=== PATIENT | female | born 1985 | race Caucasian/White ===

== ENCOUNTER 2021-02-09 04:04 | Outpatient (CLI) | payer MEDICAID, SELFPAY ==
[2021-02-10 14:53] LABS: AFP 47.9 ng/mL; Calculated age at EDD 36 years; Cigarette smoking status non-Smoker; GA used in risk estimate Scan estimate; IVF Pregnancy No; Initial or repeat testing Initial testing; Insulin dependent diabetes No; Maternal Weight 151 lbs; Number of Fetuses 1; Prev Pregnancy w/NTD No; RECOMMENDED FOLLOW UP None.; Results Summary Normal risk
== END 2021-02-09 04:05 | disposition home or self-care (01) ==
LOC: LBO 04:04
PROVIDERS: Visit Provider Advanced Practice Midwife
DX: Z34.92 Encounter for supervision of normal pregnancy, unspecified, second trimester (principal)
CPT/HCPCS: 36415; 86850; 86900; 86901; 82105

== ENCOUNTER 2021-04-15 03:06 | Outpatient (CLI) | payer MEDICAID, SELFPAY ==
[2021-04-15 10:22] LABS: HCT 35.9 % (36.0-46.0); HGB 11.7 g/dL (11.2-15.7); MCH 31.1 pg (27.0-33.0); MCHC 32.6 % (32.0-36.0); MCV 95.5 fL (80-95); MPV 9.5 fL (8.0-11.0); Platelet Count 174 10^3/uL (130-400); RBC 3.76 10^6/uL (3.93-5.22); RDW 13.5 % (11.7-14.6); RDW-SD 47.4 fL; WBC 7.75 10^3/uL (4.4-10.8)
[2021-04-15 10:30] LABS: Glucose,1 Hr (Glucola) 95 mg/dL (80-140)
== END 2021-04-15 03:07 | disposition home or self-care (01) ==
LOC: LBO 03:06
PROVIDERS: Advanced Practice Midwife; Visit Provider Advanced Practice Midwife
DX: Z34.92 Encounter for supervision of normal pregnancy, unspecified, second trimester (principal)
CPT/HCPCS: 36415; 82950; 85027

== ENCOUNTER 2021-06-18 18:36 | Outpatient (REF) | payer MEDICAID, SELFPAY ==
[2021-06-18 19:47] LABS: *AMPHETAMINES SCREEN URINE Negative (Negative); *BARBITURATES SCREEN URINE Negative (Negative); *BENZODIAZEPINES SCREEN URINE Negative (Negative); Cannabinoids THC Negative (Negative); Cocaine Screen,Urine Negative (Negative); METHADONE URINE SCREEN Negative (Negative); OPIATES URINE SCREEN Negative (Negative)
[2021-06-18 19:50] LABS: Tricyclic Antidepressants Negative (Negative)
[2021-06-27 09:45] LABS: Buprenorphine Negative ng/mL (Cutoff: 5.0); Norbuprenorphine Negative ng/mL (Cutoff: 2.5)
== END 2021-06-18 18:37 | disposition home or self-care (01) ==
LOC: LBN 18:36
PROVIDERS: Visit Provider Advanced Practice Midwife
DX: Z34.93 Encounter for supervision of normal pregnancy, unspecified, third trimester (principal)
CPT/HCPCS: 80307; 87081

== ENCOUNTER 2021-07-09 02:04 | Outpatient (CLI) | payer MEDICAID, SELFPAY | END 2021-07-09 02:05 | disposition home or self-care (01) | LOC: LBO 02:04 | PROVIDERS: Visit Provider Advanced Practice Midwife ==

== ENCOUNTER 2021-07-14 02:07 | Inpatient (IN) | payer MEDICAID, SELFPAY ==
[2021-07-14] VITALS (65 sets, daily range): BP systolic 95–183; BP diastolic 51–88; PULSE 65–169; RESP 18–97; TEMP 36.3–37.6; O2SAT 88–100; BMI 30.1
--- NOTE | 2021-07-14 02:44 | ANES.PREOP_ITS ---
General Info Date of Service Date Performed: 07/14/21 Height: 5 ft Weight: 70 kg Body Mass Index (BMI): 30.1 Meds Allergies and Home Medications Allergies Allergy/AdvReac Type Severity Reaction Status Date / Time No Known Allergies Allergy Verified 07/02/21 11:36 Home Medication Medication Instructions Recorded vits no.126-ferrous fum 1 tab PO DAILY tab 02/09/21 28 mg iron-folic acid 800 mcg tablet (Classic ) docusate sodium 100 mg capsule 100 mg PO DAILY PRN 03/18/21 famotidine 10 mg tablet (Pepcid AC) 10 mg PO DAILY 06/18/21 magnesium 250 mg tablet 250 mg PO DAILY 07/02/21 Current Visit Medications: Current Medications Generic Name Dose Route Start Last Admin Trade Name Freq PRN Reason Stop Dose Admin Sodium Chloride 500 mls @ 0 mls/hr 07/14/21 02:07 Saline 500ml Bag IV PRN PRN As Directed IV Miscellaneous Supplies 1 each 07/14/21 02:15 Iv Access IV DIRECTED WILLIAM Sodium Chloride 0 ml 07/14/21 02:07 Normal Saline Flush 10 Ml Syr IVP PRN PRN PFSH Active Problems Active Problems: Problem Status Onset Code History of tachycardia Z87.898 Suprapubic discomfort R10.2 Adjustment disorder with mixed emotional features F43.29 Difficulty weaning from breast R63.39 Rage attacks F69 Family historic risk of congenital abnormality O35.8XX0 Abnormal Pap smear of cervix R87.619 Z34.90 Advanced maternal age during , antepartum Medical History Medical History Former tobacco use Premenstrual dysphoria Tobacco Smoking/Tobacco Use Status: Former Tobacco Use Prental History History 2 Para 1 Hx # Term Pregnancies 1 Multiple births 0 Hx # Pregnancies 0 Ectopic pregnancies 0 AB induced 0 Hx Number of Living Children 1 AB spontaneous 0 Past Pregnancies Del. Date GA/Weeks # Outcome Route Wgt Sex Labor Lgth Anesthes ia Location Prov Complic 09/17/19 38 No Successful vaginal 3883.885 g Female PROM, lab or started at 12 hrs. ROM x25 hrs, had 10 minute 2nd stage. [facility] Delivery Date: 09/17/19 Last Updated by: Nely Carlson Spont labor. TTN, in NICU x15 minutes for CPAP which resolved quickly. Vital Signs and Lab Results Vital Signs Most Recent Vital Signs in EMR: Most Recent Vital Signs Pulse BP 75 106/51 L 07/14/21 02:34 07/14/21 02:34 Lab Results Result Diagrams: 07/14/21 02:45 Blood Type / Crossmatch: No Data to Display Complete Blood Count: No Data to Display Complete Metabolic Panel: No Data to Display Liver Function Panel: No Data to Display Coagulation Panel: No Data to Display Cardiac Panel: No Data to Display Arterial Blood Gas: No Data to Display Venous Blood Gas: No Data to Display Pancreas Panel: No Data to Display Thyroid Panel: No Data to Display Infectious Disease: No Data to Display Blood Cultures: No Data to Display Toxicology Panel: Urine Amphetamines Screen Negative (Negative) 06/18/21 13:35 06/18/21 Urine Benzodiazepines Screen Negative (Negative) 06/18/21 13:35 06/18/21 Urine Barbiturates Screen Negative (Negative) 06/18/21 13:35 06/18/21 Urine Cocaine Screen Negative (Negative) 06/18/21 13:35 06/18/21 Urine Methadone Screen Negative (Negative) 06/18/21 13:35 06/18/21 Urine Opiates Screen Negative (Negative) 06/18/21 13:35 06/18/21 Ur Tricyclic Antidepressants Screen Negative (Negative) 06/18/21 13:35 06/18/21 Ur Tetrahydrocannabinol (THC) Scrn Negative (Negative) 06/18/21 13:35 06/18/21 Panel: No Data to Display Anesthesia Assessment and Plan Anesthesia History Personal History: No History of Anesthesia Complications Family History: No Family History of Anesthesia Complications Exercise Tolerance Exercise Tolerance: Metabolic Equivalents>4 Cardiac & Pulmonary Exam Cardiac Exam: Normal S1/S2 Heart Sounds Pulmonary Exam: Clear Bilateral Breath Sounds Implantable Cardiac Device Does patient have a Pacemaker or an ICD?: No Airway Exam Known Difficult Airway: No Mallampati Class: 1 Mouth Opening: Normal (> 3cm) Thyromental Distance: Greater than 3 cm Neck Range of Motion: Full ROM Neck Circumference: Normal Teeth Condition: Normal Dentition ASA Classification ASA Score: ASA 2 Emergency Case?: No NPO Status NPO Status: Full Stomach Status Status: Other (preg) Anesthesia Plan Resuscitation Status: Full Code Anesthesia Technique: Spinal Anesthesia Airway Planned: Natural Airway Pain Management: Epidural Monitors Used: Standard Monitors Preoperative Comments:: 36 yo female requesting epidural. Sig PMHx: denies major, former smoker, GERD (famotidine). Previous epidural GAMAL 5.5, cath 10 cm at skin, loaded with 13 mL off pump.
[2021-07-14 02:53] LABS: HCT 36.1 % (36.0-46.0); MCH 30.9 pg (27.0-33.0); MCHC 33.2 % (32.0-36.0); MPV 10.7 fL (8.0-11.0); Platelet Count 164 10^3/uL (130-400); RBC 3.88 10^6/uL (3.93-5.22); RDW 13.7 % (11.7-14.6); RDW-SD 46.5 fL
[2021-07-14 03:16] LABS: Source Nasal/Nares
[2021-07-14] MEDS: Lactated Ringers 500 ML IV (03:18)
--- NOTE | 2021-07-14 03:19 | ANES.NEUR_ITS ---
Intrathecal Analgesia Date Performed: 07/14/21 Procedure Time: 03:10 Requesting Provider: Mary Ervin Procedure Location: Obstetrics Reason Performed: Labor Intrathecal Analgesia Standard Monitors Applied: Blood Pressure and SpO2 Patient Position: Sitting Timeout Performed: Yes Sedation Given (Indicate Dose Given): No Sedation given Patient Mental Status: Awake Sterility: Hand Hygiene, Surgical Cap, Surgical Mask, Sterile Gloves, Sterile Drape/Sheet and Chlorhexidine Placement Site: L3-L4 Interspace Spinal Needle Type: Sprotte 25 Gauge Needle Length: 3.5 Inch Spinal Procedure: Site Prepped, Sterile Drape Placed, 1% Lidocaine to skin and subcutaneous tissue with 25G needle, Introducer Needle Used, Spinal Needle Placed, Positive Heme Noted, Positive CSF Flow and Medication Injected Paresthesia: None Spinal Local Anesthetic (Indicate Dose Given): Bupivacaine 0.25% PF (ml) Dose:: 2.2 mL Additives (Indicate Dose Given): Fentanyl PF Dose:: 20 mcg Ultrasound: Not Used Number of Attempts (See previous attempts in note section): 1 Procedure Tolerated: No Complications Procedure Outcome: Successful Procedure Comment: Was called for a requested epidural placement. After a brief discussion with the miter sawyer, pt is progressing rapidly and is extremely uncomfortable, and unlikely able to tolerate epidural placement. Pt was consented for intrathecal analgesia. Performed By: Leonel Drake
--- NOTE | 2021-07-14 03:23 | W.PM.OBHPL1 ---
Date of service: 07/14/21 Time of Service: 03:00 Assessment and Plan Assessment and plan (1) Spontaneous onset of labor: Status: Acute Assessment and plan: Admit to Center. prepared for epidural analgesia. Anesthesia arrived and administered intrathecal analgesia. Covid- 19 test. Anticipate . OB-HPI Labor/Delivery History of Present Illness Reason for Visit: labor Chief Complaint: Uterine Contractions. JAIME Calculator Estimated Delivery Date Method Current WG Current Estimate 07/14/21 Ultrasound #1 40w 0d Other Estimates 07/06/21 LMP (Certain) 41w 1d Comments: Olga called with strong regular contractions, She arrived in active labor and requesting an epidural. History of Present Expected Delivery Route/Plan - CNM FOB - [place] (2nd baby together, has a 16 year old) BB yes to circ Will want regional anesthesia if there is time, plans to labor at home for awhile GBS neg Specific Issues/Plan 1. Advanced maternal age - first trimester serum genetic testing normal at [facility], CF neg in previous , offered [facility] [place] Level 2 US, referral sent. 1a. Maternal AFP only neg; Level II US is normal, placenta, posterior and left lateral 2. Family history chromosome 13 anomaly - brother's child at 3 months-genetic testing scheduled. 2a. Declines amniocentesis but agreed to Fragile X testing with Genetics, done @ [facility] [place], nml male fetus 3. Olga and her have not received Covid vaccine. Had a COVID test in March=negative 4. Early Glucose - 138, 3-hr not recommended at [facility]. Glucola done @ 27 wks=95 5. Light spotting 21 weeks - precautions reviewed. 6. Pruritic rash on wrists and face- to try triamcinolone cream. relief methods discussed. 7. Tandem nursing 18 month old - attempting to wean and having difficulty, referral to Tory ADAMS to discuss 8. History of mood disorder/rage reaction - referred to her PCP for Mental health services and marriage counseling [facility] All Active Problems (Updated 07/14/21 @ 03:28 by Mary Ervin CNM) Spontaneous onset of labor (Acute) History of tachycardia (Acute) Suprapubic discomfort (Acute) Adjustment disorder with mixed emotional features (Acute) Difficulty weaning from breast (Acute) Rage attacks (Acute) Family historic risk of congenital abnormality (Acute) Patient's Brother's baby had trisomy 13 that led to @ 3 months Abnormal Pap smear of cervix (Acute) Pap 02/2019 ASCUS; HPV Negative Reported pap 2006 was SUGEY 3, resolved, no treatment (Acute) Advanced maternal age during , antepartum (Acute) Medical History (Updated 07/14/21 @ 03:28 by Mary Ervin CNM) Former tobacco use Premenstrual dysphoria Family History Paternal Grandmother Parkinson disease Niece Family historic risk of congenital abnormality trisomy 13, after Social History (Updated 02/09/21 @ 10:29 by Mary Ervin CNM) Smoking/Tobacco Use Status: Former Tobacco Use Tobacco: How many years used: 20 Smoking risk assessment performed?: Yes Alcohol Intake: never Substance use type: does not use History History 2 Para 1 Hx # Term Pregnancies 1 Multiple births 0 Hx # Pregnancies 0 Ectopic pregnancies 0 AB induced 0 Hx Number of Living Children 1 AB spontaneous 0 Past Pregnancies Del. Date GA/Weeks # Outcome Route Wgt Sex Labor Lgth Anesthesia Location Prov Complic 09/17/19 38 No Successful vaginal 8 lb 9 oz Female PROM, labor started at 12 hrs. ROM x25 hrs, had 10 minute 2nd stage. [facility] Delivery Date: 09/17/19 Last Updated by: Nely Carlson Spont labor. TTN, in NICU x15 minutes for CPAP which resolved quickly. Meds Allergies and Home Medications Allergies Allergy/AdvReac Type Severity Reaction Status Date / Time No Known Allergies Allergy Verified 07/02/21 11:36 Home Medications Medication Instructions Recorded Confirmed Type vits no.126-ferrous fum 1 tab PO DAILY tab 02/09/21 06/26/21 History 28 mg iron-folic acid 800 mcg tablet (Classic ) docusate sodium 100 mg capsule 100 mg PO DAILY PRN 03/18/21 06/26/21 History famotidine 10 mg tablet (Pepcid AC) 10 mg PO DAILY 06/18/21 06/26/21 History magnesium 250 mg tablet 250 mg PO DAILY 07/02/21 History Exam Physical Exam Vital signs: Pulse BP Pulse Ox 78 101/64 99 07/14/21 03:19 07/14/21 03:10 04/12/22 03:18 Detailed Labor and Delivery Exam Dilation: 6 Effacement (%): 80 station: -2 Position: VALERIO Cervix position: posterior Consistency: soft Tai Score: Cervical Points Exam 0 1 2 3 Dilation Closed 1-2cm 3-4 cm 5-6cm Effacement 0-30% 40-50% 60-70% 80% Consistency Firm Medium Soft Station -3 -2 -1,0 +1,+2 Position Posterior Mid Anterior Amniotic Membrane Status: Intact Rupture Method: Spontaneous Amniotic Fluid: Clear Pooling: Negative Monitor Mode: External Contraction Frequency(min): evry 3 min Contraction Duration(sec): 60 Contraction Intensity: Moderate/Strong Fetus A Heart Rate Baseline: 120 Monitor Accelerations: 15 X 15 Monitor Decelerations: None Variability: Moderate (6-25 BPM) Presentation: Vertex Est. Weight: 8 lb Respiratory Exam Respiratory Exam: Normal Cardiovascular Exam Cardiovascular Exam: Normal Abdominal Exam Abdominal Exam: Normal Rectal Exam Rectal Exam: Normal Exam Exam: Normal Extremities Exam Extremities Exam: Normal Skin Exam Skin Exam: Normal Psychiatric Exam Psychiatric Exam: Normal (coping fairly well with labor and using nitrous oxide for pain., ) Results Abnormal Lab Findings: Abnormal Labs 07/14/21 02:45 RBC 3.88 L Risk Assessment Risk for Shoulder Dystocia Historical/Initial OB: NEGATIVE FOR: Pelvic Abnormality, Pre- BMI>30, Previous Shoulder Dystocia or Previous Macrosomia Delivery Plan @ 36wks: spont labor, Risk for Pre-Eclampsia Date Initiated/Initials: not indicated Yes, if one or more: NEGATIVE FOR: Hx Pre-E/Gest HTN, Chronic HTN, Multiple Gestation, Pre-gestational DM, Renal Disease, Systemic Lupus or APA Syndrome Yes, if 2 or more: POSITIVE FOR: Age>= 35 yrs; NEGATIVE FOR: Nulliparity, >10yr btwn pregnancies, BMI>30, ethinicty, Mother/Sister w/ Pre-E or Previous IUGR Risk for Post- Hemorrhage Initial: NEGATIVE FOR: Multiple Gestation, Previous PPH, Known Clotting Deficiency, Grand Multiparity or Anticoagulation Risks Reviewed Risks Reviewed Upon Admission: Yes
[2021-07-14] MEDS: Calcium Carbonate *TUMS* 500 MG CHEW PO (03:45)
[2021-07-14] MEDS: Oxytocin/Normal Saline 30 UNIT/500 ML BAG 95 UNITS IV (04:29)
--- NOTE | 2021-07-14 05:03 | W.OBDELIVERY ---
Date of service: 07/14/21 Time of Service: 05:03 OB Labor/ Delivery Information Baby A Delivery Delivery Method: Spontaneaous Presentation: Vertex Cephalic Position: Vertex Vertex Position: Left Occipital Anterior Amniotic Fluid: Clear Estimated Blood Loss: 250 Delivery Outcome: Liveborn Transferred: Remains with Mother Note: Olga was 7 cms and 0 station after spontaneous rupture of membranes for a large amount of clear fluid. Intrathecal analgesia given by Leonel MATA with excellent effect. Olga rested and had an urge to push and was fully dilated. FHTs 130s during first stage of labor. FHTs 130s in second stage. Second stage huddle was done. Spontaneous delivery of male delivered in VALERIO position. Baby was placed on mother's abdomen and dried and stimulated. Spontaneous cry. Cord was clamped and cut by the baby's father. The placenta delivered spontaneously and appears to by intact with a three vessel cord. Pitocin 30 units IV was administered after delivery of the placenta. The perineum was inspected and a small perineal abrasion was reapproximated with one interrupted suture as it was bleeding slightl. The baby did breastfeed well. After delivery, Mother and baby and father of the baby were stable and bonding well in the delivery room and there were no complications. Providers Nurse Account Analyst: Mary Ervin Nurse: Radha Coughlin Nurse: Corine Gonzalez Labor/Delivery Information Number of Babies in Womb: 1 Steroids Given: None Reason Steroids Not Administered: N/A Group Beta Strep: Negative Rubella Status: Immune Blood Type: O+ Varicella Immunity: Immune Medication in Delivery: xylocaine for repair Maternal Complications: None Shoulder Dystocia: No Stages of Labor Onset of Labor Date: 07/14/21 Onset of Labor Time: 02:15 Complete Dilatation Date: 07/14/21 Complete Dilatation Time: 04:15 Labor - Stage 1 Duration: 0 minutes ROM Baby A: 07/14/21 ROM Baby A: 03:00 Delivery Date-Baby A: 07/14/21 Delivery Time-Baby A: 04:29 Labor Stage 2 Duration: 14 minutes Placenta Delivery Date-Baby A: 07/14/21 Placenta Delivery Time-Baby A: 04:36 Labor-Stage 3 Duration: 7 minutes Total Length of Labor-Baby A: 2 hours and 14 minutes Placenta Status: Delivered Baby A Gender: Male Gestational Status: Term (39-41.6 wks) Gestational Age in Weeks/Days: 40 Weeks and 0 Days Score-1 Minute Interval(Baby A) Heart Rate-1 minute: 100 BPM or Greater Respiratory Effort- 1 minute: Slow Respiration/Weak Cry Muscle Tone-1 minute: Active Movement Reflex Response-1 minute: Prompt Response Color-1 minute: Bluish Hands or Feet Total Score-1 minute: 8 Score-5 Minute Interval(Baby A) Heart Rate- 5 minute: 100 BPM or Greater Respiratory Effort-5 minute: Spontaneous/Strong Cry Muscle Tone-5 minute: Active Movement Reflex Response-5 minute: Prompt Response Color-5 minute: Bluish Hands or Feet Total Score- 5 minute: 9 Interventions Repair of Laceration (under local analgesia) Type: Perineal, Laceration Extension: N/A (abrasion only). Sponge Count Correct: No Sponges Placed in Vagina, Sharp Count Correct: Yes.
[2021-07-14] MEDS: Ibuprofen 600 MG TAB PO ×4 (05:33→23:17)
--- NOTE | 2021-07-14 11:42 | W.ANESPOSTOP ---
Postoperative Evaluation Date, Time and Location Date Performed: 07/14/21 Time Performed: 11:44 Patient Location: Obstetrics Vital Signs Most Recent Imported Vital Signs: Most Recent Vital Signs Temp Pulse Resp BP Pulse Ox 37.2 C 70 18 96/53 L 97 07/14/21 05:16 07/14/21 07:42 07/14/21 05:16 07/14/21 07:42 07/14/21 04:48 Pain Score Most Recent Pain Score: Most Recent Pain Score Pain Level 3 07/14/21 05:33 Assessment Mental Status: Awake (Alert & Oriented to Patient Baseline) Airway and Respiratory Function: Patent airway with normal (patient baseline) respiratory exam Cardiovascular Function: Hemodynamically Stable Hydration Status: Adequately Hydrated Nausea & Vomiting: No Nausea or Vomiting Pain: Pain is tolerable per patient Peripheral Nerve Block: Patient did not receive a nerve block
[2021-07-14] MEDS: Acetaminophen 325 MG TAB 650 MG PO ×3 (12:07→23:17)
[2021-07-14] MEDS: Hamamelis Leaf/Glycerin 100 EACH BOX PR (12:08)
[2021-07-14] MEDS: Dibucaine 1% 28 GM TUBE TP (12:08)
[2021-07-14] MEDS: Docusate Sodium 100 MG CAP PO (12:08)
[2021-07-14 14:39] LABS: COVID-19 PCR Negative (Negative)
[2021-07-15] MEDS: Docusate Sodium 100 MG CAP PO (04:26)
[2021-07-15] MEDS: Acetaminophen 325 MG TAB 650 MG PO ×2 (04:27→12:12)
[2021-07-15] MEDS: Ibuprofen 600 MG TAB PO (08:10)
[2021-07-15] MEDS: Calcium Carbonate *TUMS* 500 MG CHEW PO (08:15)
[2021-07-15 09:00] VITALS: BP 110/70; PULSE 80; RESP 16; TEMP 36.8; O2SAT 97
--- NOTE | 2021-07-15 09:54 | W.PM.OBPNV1 ---
Date of service: 07/15/21 Time of Service: 09:54 Assessment and Plan Assessment and plan (1) Care and examination of lactating mother: Status: Acute Assessment and plan: well, nipples uninjured, milk easily expressed (2) Term delivered: Status: Acute Assessment and plan: A: PPD#1, s/p , nml recovery off to a good start Satisfied with experience P: Pt requesting discharge today Is hoping her will have a vasectomy Declines hormonal BCM or device in the interim Planning circumcision prior to discharge F/up in 2 & 6 wks w/CNM Written instructions reviewed and given to pt Subjective Subjective Patient comments: No complaints, Pain well controlled, Tolerating diet and Bowel Movement Patient's Mood: tired, happy baby status: Doing well, Nursing well, Rooming in and Strong Bonding Observed feeding status: Exclusively breast feeding Exam Physical Exam Vital signs: Temp Pulse Resp BP Pulse Ox 97.3 F L 96 H 18 108/73 97 07/14/21 19:45 07/14/21 19:45 07/14/21 19:45 07/14/21 19:45 07/14/21 19:45 Vital Signs Reviewed: Yes Constitutional Constitutional: no acute distress and average body habitus HEENT Exam HEENT Exam: Normal Neck Exam Neck Exam: Normal Breast Exam Bilateral: Breast Exam: Normal and Soft Nipple Exam: Normal and Uninjured Respiratory Exam Respiratory Exam: Normal Cardiovascular Exam Cardiovascular Exam: Normal Abdominal Exam Abdomen: Other (soft, nontender) Fundal Exam Fundus: Below Umbilicus and Firm Rectal Exam Rectal Exam: Normal Exam Perineum: Intact Extremities Exam Extremity Exam: Normal, Full ROM, Normal Capillary Refill and Warm to Touch Back/Spine/Pelvis Exam Back Exam: Normal Skin Exam Skin Exam: Normal Neurological Exam Neurological Exam: Normal Psychiatric Exam Psychiatric Exam: Normal Results Hemoglobin/Hematocrit: Hgb 12.0 g/dL (11.2-15.7) 07/14/21 02:45 Hct 36.1 % (36.0-46.0) 07/14/21 02:45 Abnormal Lab Findings: Abnormal Labs 07/14/21 02:45 RBC 3.88 L
--- NOTE | 2021-07-15 10:08 | DSE_ITS ---
Date of service: 07/15/21 Time of Service: 10:09 DS: Diagnosis Discharge Diagnosis (1) Care and examination of lactating mother: Status: Acute (2) Term delivered: Status: Acute Discharge Plan Disposition Patient Disposition: HOME Condition: Good Discharge Details Reason For Visit: Labor Admit Date/Time: 07/14/21 02:07 Admit Provider: Mary Ervin Attending Provider: Mary Ervin Hospital Course Hospital Course: under intrathecal anesthesia, uncomplicated course, pt requests discharge on first day. Home Meds and New Rx's Prescriptions: No Action Classic 28 mg iron- 800 mcg tablet 1 tab PO DAILY 0RF docusate sodium 100 mg capsule 100 mg PO DAILY PRN0RF magnesium 250 mg tablet 250 mg PO DAILY 0RF Discharge Instructions Additional Instructions: Please keep your 2 and 6 wk appointments with your wad printing machine operator, if it is more convenient the 2 week appt can be done via telehealth. If this is something you wish, please call the office prior to that appointment to request it be done by telehealth. Please call for any concerns or questions. Stand Alone Forms: BC Instructions, BC Post Vaginal Deliver Activity:: Activity as Tolerated Equipment/Supplies:: No Equipment Needed Diet:: Normal Diet Discharge Orders Discharge Orders: Discharge Order (Routine); Ordered 07/15/21 Ordered By: Nely Carlson OB:DS Summary Summary Vaginal Delivery Method: Spontaneaous Episiotomy Description: None Laceration Description: Perineal Laceration Extension: N/A Contraception Discussed Contraception Discussed: Yes Contraceptive Plan: Vasectomy, [place] Infant Gender-Baby A: Male weight: 8 lb 5.159 oz Weight-Baby B: 8 lb 5.159 oz Status at Discharge Functional status at discharge: independent ambulation Overall status at discharge: patient is progressing back to baseline Mental Status: mental status grossly normal Speech and Movement: speech and movement normal and speech clear Mood: congruent mood Affect: normal affect Exam Physical Exam Vital signs: Temp Pulse Resp BP Pulse Ox 97.3 F L 96 H 18 108/73 97 07/14/21 19:45 07/14/21 19:45 07/14/21 19:45 07/14/21 19:45 07/14/21 19:45 Constitutional Constitutional: no acute distress and average body habitus HEENT Exam HEENT Exam: Normal Neck Exam Neck Exam: Normal Breast Exam Bilateral: Breast Exam: Normal and Soft Respiratory Exam Respiratory Exam: Normal Cardiovascular Exam Cardiovascular Exam: Normal Abdominal Exam Abdomen: Other (soft, nontender) Fundal Exam Fundus: Below Umbilicus and Firm Rectal Exam Rectal Exam: Normal Exam Perineum: Intact Extremities Exam Extremity Exam: Normal, Full ROM, Normal Capillary Refill and Warm to Touch Back/Spine/Pelvis Exam Back Exam: Normal Skin Exam Skin Exam: Normal Neurological Exam Neurological Exam: Normal Psychiatric Exam Psychiatric Exam: Normal PFSH All Active Problems (Updated 07/15/21 @ 09:52 by Nely Carlson) Care and examination of lactating mother (Acute) Term delivered (Acute) Adjustment disorder with mixed emotional features (Acute) Rage attacks (Acute) Medical History (Updated 07/15/21 @ 09:52 by Nely Carlson) Abnormal Pap smear of cervix Pap 02/2019 ASCUS; HPV Negative Reported pap 2006 was SUGEY 3, resolved, no treatment Family historic risk of congenital abnormality Patient's Brother's baby had trisomy 13 that led to @ 3 months Former tobacco use History of tachycardia Premenstrual dysphoria Family History Paternal Grandmother Parkinson disease Niece Family historic risk of congenital abnormality trisomy 13, after Social History (Updated 02/09/21 @ 10:29 by Mary Ervin CNM) Smoking/Tobacco Use Status: Former Tobacco Use Tobacco: How many years used: 20 Smoking risk assessment performed?: Yes Alcohol Intake: never Substance use type: does not use History History 2 Para 1 Hx # Term Pregnancies 1 Multiple births 0 Hx # Pregnancies 0 Ectopic pregnancies 0 AB induced 0 Hx Number of Living Children 1 AB spontaneous 0 Past Pregnancies Del. Date GA/Weeks # Outcome Route Wgt Sex Labor Lgth Anesthes ia Location Prov Complic 09/17/19 38 No Successful vaginal 8 lb 9 oz Female PROM, labo r started at 12 hrs. ROM x25 hrs, had 10 minute 2nd stage. [facility] Delivery Date: 09/17/19 Last Updated by: Nely Carlson Spont labor. TTN, in NICU x15 minutes for CPAP which resolved quickly. DS: Data Vitals/I&O Vitals and I&O: Vital Signs Temperature 97.3 F L 07/14/21 19:45 Pulse 96 H 07/14/21 19:45 Pulse Rhythm Regular 07/14/21 19:45 Respiratory Rate 18 07/14/21 19:45 Respiratory Depth Normal 07/14/21 19:45 Blood Pressure 108/73 07/14/21 19:45 Blood Pressure Mean 84 07/14/21 19:45 Pulse Oximetry 97 07/14/21 19:45 Oxygen Delivery Method Room Air 07/14/21 02:41 Oxygen Flow Rate 0 07/14/21 02:41 Pain Level 5 07/15/21 08:10 Intake & Output 07/14/21 07/14/21 07/15/21 11:59 23:59 11:59 Intake Total 1550 / 2100 550 / 2100 Output Total 500 / 1250 750 / 1250 Balance 1050 / 850 -200 / 850 Weight 154 lb 5.177 oz Intake: IV 1000 / 1000 Oral 550 / 1100 550 / 1100 Output: Urine 500 / 1250 750 / 1250 Other: Urine Color Pale Pale Yellow Yellow Data Completed and Pending Labs on day of discharge: Labs from last 24 hours 07/14/21 02:00 SARS-CoV-2 (PCR) Negative
== END 2021-07-15 15:00 | disposition home or self-care (01) | DRG 807 ==
PROVIDERS: Admitting Provider Advanced Practice Midwife; Visit Provider Advanced Practice Midwife
DX: O99.344 Other mental disorders complicating childbirth (principal); Z37.0 Single live birth; O70.0 First degree perineal laceration during delivery; Z3A.40 40 weeks gestation of pregnancy; F39 Unspecified mood [affective] disorder
CPT/HCPCS: 36415; 85027; 86850; 86900; 86901; 87635; J3490

== ENCOUNTER 2021-08-26 04:16 | Outpatient (CLI) | payer MEDICAID, SELFPAY ==
[2021-08-26 16:48] LABS: FREE T4 0.94 ng/dL (0.76-1.46); TSH 2.02 uIU/mL (0.36-3.74)
== END 2021-08-26 04:17 | disposition home or self-care (01) ==
LOC: LBO 04:16
PROVIDERS: Visit Provider Advanced Practice Midwife
DX: F41.8 Other specified anxiety disorders (principal)
CPT/HCPCS: 36415; 84439; 84443

== ENCOUNTER 2023-06-22 05:22 | Outpatient (CLI) | payer MEDICAID, SELFPAY ==
[2023-06-22 15:49] LABS: TSH (W/Ref FT4) 2.15 uIU/mL (0.36-3.74)
[2023-06-22 23:10] LABS: Estradiol 27 pg/mL (See Note)
[2023-06-22 23:14] LABS: LH 2.9 mIU/mL (See Note)
== END 2023-06-22 05:23 | disposition home or self-care (01) ==
LOC: LBO 05:22
PROVIDERS: Visit Provider Advanced Practice Midwife
DX: F32.81 Premenstrual dysphoric disorder (principal)
CPT/HCPCS: 36415; 82670; 83001; 83002; 84443